=== PATIENT | male | born 2000 | race Caucasian/White ===

== ENCOUNTER 2018-11-13 16:55 | Emergency (ER) | payer OTHER ==
--- NOTE | 2018-11-13 19:01 | EDPHY ---
H & P Stated Complaint: RLQ pain since last night, vomit x2 today - Personal History Current Tetanus/Diphtheria Vaccine: Yes - Medical/Surgical History Hx Asthma: No Hx Chronic Respiratory Disease: No Hx Diabetes: No Hx Cardiac Disease: No Hx Renal Disease: No Hx Cirrhosis: No Hx Alcoholism: No Hx HIV/AIDS: No Hx Splenectomy or Spleen Trauma: No Other PMH: none - Social History Smoking Status: Never smoked Time Seen by Provider: 11/13/18 18:55 HPI/ROS: CHIEF COMPLAINT: Right lower quadrant pain since 1:00 a.m. HISTORY OF PRESENT ILLNESS: 18-year-old male generally healthy complaining of right lower quadrant abdominal pain since 1:00 a.m.. No testicular pain. Positive vomiting. No diarrhea. Bowel movements normal. No urinary abnormality. No trauma. Last oral intake 3:30 p.m. Today consisting of chicken noodle soup. PRIMARY CARE PROVIDER: REVIEW OF SYSTEMS: 10 systems reviewed and negative with the exception of the elements mentioned in the history of present illness PAST MEDICAL & SURGICAL HISTORY: No pertinent medical or surgical history SOCIAL HISTORY:Student nonsmoker PHYSICAL EXAM (Prior to examination, patient consented to physical exam, hands were washed and my usual and customary physical exam procedures followed) 1) GENERAL: Well-developed, well-nourished, alert and oriented. Appears to be in no acute distress. 2) HEAD: Normocephalic, atraumatic 3) HEENT: Pupils equal, round, reactive to light bilaterally. Sclera anicteric. 4) NECK: Full range of motion, no meningeal signs. 5) LUNGS: Clear auscultation bilaterally, no wheezes, no rhonchi, no retractions. 6) HEART: Regular rate and rhythm, no murmur, no heave, no gallop. 7) ABDOMEN: No guarding, focally tender to palpation right lower quadrant McBurney's point, negative Parekh's, negative Rovsing's, negative peritoneal sign, 8) MUSCULOSKELETAL: Moving all extremities, no focal areas of tenderness, no obvious trauma. No peripheral edema or discoloration. 9) BACK: No CVA tenderness, no midline vertebral tenderness, no fluctuance, no step-off, no obvious trauma, no visual or palpable abnormality. 10) SKIN: No rash, no petechiae. 11) : Normal male external genitalia bilateral testicles nontender, non high- riding, bilateral cremasteric reflex present and brisk DIFFERENTIAL DIAGNOSIS: [My differential diagnosis includes, but is not limited to, acute appendicitis, acute cholecystitis, bowel obstruction, acute pancreatitis, testicular torsion, gastritis. The patient understands that this diagnosis is provisional and can never be 100% accurate. This is a partial list of diagnoses considered. These considerations are based on history, physical exam, past history and reassessment. ] (Hammad Parry) Constitutional: Initial Vital Signs Temperature (C) 36.6 C 11/13/18 17:19 Heart Rate 76 11/13/18 17:19 Respiratory Rate 16 11/13/18 17:19 Blood Pressure 133/72 H 11/13/18 17:19 O2 Sat (%) 98 11/13/18 17:19 O2 Delivery Mode Room Air Allergies/Adverse Reactions: No Known Allergies Allergy (Unverified 11/13/18 17:19) Medical Decision Making - Diagnostics Imaging Results: Images reviewed myself (Hammad Parry) ED Course/Re-evaluation: 7:00 p.m.: Will obtain laboratory studies, creatinine, will plan on CT imaging if his creatinine is normal. Remains NPO since 3:30 p.m.. Care of patient under supervision of secondary supervising physician Dr Caraballo with whom I discussed case. 9:15 p.m.: Re-evaluation. Discussed with the patient his diagnostic results which included normal appearing appendix. Doubt acute appendicitis. I re- examined the patient and he has still minimal pain in the right lower quadrant. This time I think the patient can be safely discharged with close precautions and follow-up. Doubt acute appendicitis, doubt acute cholecystitis, doubt bowel obstruction, doubt acute pancreatitis, doubt testicular torsion. Definitely if he develops new or worsening symptoms to return to the ER. He feels comfortable being discharged. All questions and concerns addressed by myself. (Hammad Parry) The patient was evaluated and managed by the physician service assistant. I have reviewed this chart and I agree with the findings and plan of care as documented , as indicated by my signature. I am the secondary supervising physician. ( Debi Caraballo) - Data Points Laboratory Results: Laboratory Results 11/13/18 19:10 11/13/18 19:10 Point of Care Test Results: Chemistry 11/13/18 19:21 POC Sodium 143 mEq/L mEq/L (135-145) POC Potassium 3.8 mEq/L mEq/L (3.3-5.0) POC Chloride 103 mEq/L mEq/L (97-110) POC Total CO2 25 mEq/L mEq/L (22-31) POC BUN 10 mg/dL mg/dL (7-23) POC Creatinine 0.9 mg/dL mg/dL (0.7-1.3) POC Glucose 91 mg/dL mg/dL (70-100) ISTAT H&H 11/13/18 19:21 POC Hgb 16.7 gm/dL gm/dL (13.7-17.5) POC Hct 49 % % (40-51) Departure - Departure Disposition: Home, Routine, Self-Care Clinical Impression: Abdominal pain Condition: Good Instructions: Acute Abdominal Pain (ED) Additional Instructions: Seek immediate medical attention if you develop new or worsening symptoms, if you develop fevers, chills, inability to tolerate oral intake or any other symptoms that concerns you. Referrals: [facility] [Clinic] - 1-2 days without fail Stand Alone Forms: School Excuse
[2018-11-13] MEDS ORDERED: IOPAMIDOL (ISOVUE 370) 100 ML BTL IV ONE (19:38)
[2018-11-13 20:26] LABS: PLATELET COUNT 284 10^3/uL (150-400)
[2018-11-13 21:03] VITALS: BP 124/75
== END 2018-11-13 21:21 | disposition home or self-care (01) ==
DX: R10.31 Right lower quadrant pain (principal)
CPT/HCPCS: 82435-PO; 82565-PO; 82947-PO; 84132-PO; 84295-PO; 84520-PO; 85014-ER; Q9967